=== PATIENT | female | born 2000 | race Hispanic/Latino ===

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

== ENCOUNTER 2020-04-13 | Emergency (ER) | payer SELFPAY ==
--- NOTE | 2020-04-13 03:08 | ER ---
Nurse's Notes [facility] Name: Rebekah Ryan Age: 19 yrs Sex: Female : 2000 Arrival Date: 04/13/2020 Time: 02:20 Bed Waiting Private MD: Diagnosis: ED Course: 04/13 02:20 Patient arrived in ED. am2 03:00 Patient's name was called from ER lobby. No response. Unable to locate patient. Will lp1 disposition as left without being seen by a provider. Administered Medications: No medications were administered Outcome: 03:08 Patient left the ED. lp1 Signatures: Eneida Hanna RN RN lp1 Grazyna Phelps am2
== END 2020-04-13 03:08 | disposition left against medical advice (07) ==